=== PATIENT | female | born 1935 | race Caucasian/White ===

== ENCOUNTER 2018-10-01 10:00 | Inpatient (IN) ==
[2018-10-01] MEDS ORDERED: Metoprolol Tartrate 25 MG Tablet PO ONE (10:30)
[2018-10-01] MEDS ORDERED: Sodium Chlor 0.9% Inj 500 ML IV.CONT ONE (10:30)
[2018-10-01] MEDS ORDERED: Chlorhexidine 4% Topical 120 APPLIC/120 ML Bottle TOPICAL SCH (10:30)
[2018-10-01] MEDS ORDERED: Chlorhexidine Gluconate 2% 1 Pack (2 Cloths) TOPICAL ONE (10:30)
[2018-10-01] MEDS ORDERED: Vancomycin Inj 1,000 MG in Sodium Chlor 0.9% Inj 250 ML IV.SIG SCH (11:00)
[2018-10-01] MEDS ORDERED: ceFAZolin 2 GM Premix Inj 2 GM/50 ML PIGGYBACK IV.SIG SCH (11:00)
[2018-10-01] MEDS ORDERED: Sodium Chlor 0.9% Inj 73.07 ML, Ropivacaine 0.5% PF Inj 24.63 ML, Ketorolac Inj 30 MG, ... P-ARTICULR SCH ×5 (11:30)
[2018-10-01] MEDS ORDERED: ceFAZolin 1 GM Premix Inj 1 GM/50 ML PIGGYBACK IV.SIG ONE (13:30)
[2018-10-01] MEDS ORDERED: Post-op Orders (for Pharmacy) OTHER STA (15:19)
[2018-10-01] MEDS ORDERED: Morphine Sulfate Inj 2 MG/ML Vial IV.PUSH PRN (15:19)
[2018-10-01] MEDS ORDERED: Bisacodyl 10 MG Supp RECTAL PRN (15:19)
[2018-10-01] MEDS ORDERED: Zolpidem Tartrate 5 MG Tablet PO PRN (15:21)
[2018-10-01] MEDS ORDERED: fentaNYL Citrate Inj 100 MCG/2 ML Ampul ONE ×2 (15:24)
[2018-10-01] MEDS ORDERED: *Meperidine Inj 25 MG/ML Vial PERIprocedural Use ONLY ONE (15:34)
--- NOTE | 2018-10-01 15:50 | XR ---
EXAM DATE: 10/01/2018 3:46 PM EST AGE/SEX: 83 years / Female INDICATIONS: Post op right knee surgery. CLINICAL DATA: This is the patient's initial encounter. Patient reports that signs and symptoms have been present for 1 day and indicates a pain score of 5/10. MEDICAL/SURGICAL HISTORY: None. None. COMPARISON: PCI, MR KNEE W/O CONTRAST, RIGHT, 09/07/2018. . FINDINGS: Right knee arthroplasty in place. A thoracic components are in anatomic alignment and well positioned . No significant bony fracture. Immediate postsurgical soft tissue changes are noted in the anterior knee soft tissues. CONCLUSION: 1. Status post right knee arthroplasty in anatomic alignment without significant fracture. Electronically signed by: Julian Campoverde MD Board Certified Radiologist 10/01/2018 3:48 PM RACHEL T
[2018-10-01] MEDS ORDERED: *morphine SULFATE 4 MG/ML PERIprocedure ONLY ONE (17:18)
--- NOTE | 2018-10-01 17:53 | MP ---
cc: Maynor Smith MD, Lydia MD DATE OF OPERATION: 10/01/2018 PREOPERATIVE DIAGNOSES: Right knee severe patellofemoral osteoarthritis; lateral patellar subluxation. POSTOPERATIVE DIAGNOSIS: Right knee severe patellofemoral osteoarthritis; lateral patellar subluxation. PROCEDURE PERFORMED: Right total knee arthroplasty - cemented [employer]. SURGEON: Maynor Smith MD DOCK SUPERVISOR: Ramonita Guzmán PA-C. TOURNIQUET TIME: 58 minutes at 275 mmHg. SPECIMEN: None. COMPLICATIONS: None. ANESTHESIA: General, adductor canal saphenous nerve block, intraarticular block. PROCEDURE: My assistant warehouse manager, Ramonita Guzmán PA-C, was present for the entire surgical case. She was medically necessary for the entire case because of the complexity of case and to facilitate the performance of the procedure. The WOOL HAT FORMING MACHINE TENDER at the back table was not of skill set for this case to manipulate instruments due to the multiple different soft tissue retractors, trial implants, permanent implants, including bone cement. PROCEDURE DETAILS: The patient was brought in the operating room and had satisfactory anesthesia by the Department of Anesthesia. The patient's right lower extremity was prepped and draped in the usual sterile fashion. The extremity was exsanguinated by elevation and tourniquet inflated to 275 mmHg. Small anterior skin incision. Anteromedial exposure of the knee was made. The patient was found to have evidence of a previous hematoma. The patient was found to have severe osteoarthritis involving the patellofemoral compartment with severe erosion involving the undersurface of the patella, the supracondylar notch area, and also the lateral femoral condyle. The patient was also found to have arthritis involving the medial and lateral compartments. The remaining portion of the medial and lateral meniscus were removed. The anterior cruciate ligament was removed. The prepatellar fat pad was excised. Posterior cruciate ligament was preserved. Using the [employer] total knee arthroplasty system, IM guide was used at the distal femur to accept a 5-degree valgus cut, to accept a 65 mm femoral component. The extramedullary guide was used for the proximal tibia to accept a 75 mm tibial component. The undersurface of the patella was removed to accept a 28 mm patellar prosthesis. A trial reduction was made. The patient was found to have excellent balance, both flexion and extension, with a 12 mm insert. All trial components were removed and preparation for cementing was made. First, the knee was anesthetized using 100 mL of local anesthesia provided by the pharmacy department. The knee was then irrigated with copious amounts of sterile saline solution. Two packages of high viscosity bone cement by [employer] was used. First, the tibial component was cemented, which was a 75 mm tibial component, followed by a femoral component, which was a 65 mm femoral component. The undersurface of the patella was cemented, which was a 28 mm patellar component. All excess bone cement was removed. Bone cement was allowed to harden for 11 minutes. The polyethylene trial plastic was removed. A 12 x 75 "lipped" prosthesis was assembled onto the tibial tray and the appropriate clipping mechanism was used to secure the polyethylene plastic onto the tibial tray. The patient was found to have excellent balance, flexion and extension, and excellent stability. The tourniquet was deflated. A lateral retinacular release was performed with this. Patella was found to groove well within the patellofemoral compartment with the "no thumbs technique." All bleeders were then coagulated. The wound itself was dry. It was irrigated with 4000 mL of sterile saline and antibiotic solution. The wound was closed over with two 1/8-inch Hemovac drains. The capsule and extensor mechanism were repaired using both interrupted #2 Ti-Cron suture, subcuticular layers with 0 Vicryl and 2-0 Vicryl. Skin was approximated with skin aruna. Sterile dressings were applied. The patient tolerated the procedure well and arrived in the recovery room in stable and satisfactory condition. MD LI Mcclain/jacob , 03:17 PM , 03:29 PM STEPHANY
[2018-10-01] MEDS ORDERED: CETIRIZINE 10 MG PO SCH (21:00)
[2018-10-01] MEDS ORDERED: MAGNESIUM 250 MG PO SCH (21:00)
[2018-10-01] MEDS: ceFAZolin 1 GM Premix Inj 1 GM/50 ML PIGGYBACK IV.SIG SCH (22:38)
[2018-10-01] MEDS: Senna/Docusate Sodium 8.6/50 MG Tablet PO SCH (22:39)
[2018-10-02] MEDS: ceFAZolin 1 GM Premix Inj 1 GM/50 ML PIGGYBACK IV.SIG SCH ×2 (03:21→09:30)
[2018-10-02 05:39] LABS: Hematocrit 26.4 % (35.0-46.0); Hemoglobin 9.1 gm/dL (11.6-15.3)
[2018-10-02] MEDS ORDERED: Levothyroxine 125 MCG Tablet PO SCH (06:00)
--- NOTE | 2018-10-02 07:12 | P.PNOP ---
Subjective Interval history: POD#1 R TKR No pain No chest pain;no SOB Patient wishes to go to SNF today Physical Exam Vital signs: Vital Signs 10/01/18 10:56 10/01/18 15:17 10/01/18 15:30 Temperature 98.2 F 97.8 F Pulse Rate 69 80 69 Respiratory Rate 16 16 15 Blood Pressure 170/77 H 137/63 153/72 H Pulse Oximetry 100 100 100 10/01/18 15:45 10/01/18 16:00 10/01/18 16:30 Temperature Pulse Rate 67 73 79 Respiratory Rate 12 14 18 Blood Pressure 132/63 120/59 L 127/61 Pulse Oximetry 98 98 100 10/01/18 17:00 10/01/18 17:36 10/01/18 18:24 Temperature 98 F 98 F 97.4 F L Pulse Rate 71 68 64 Respiratory Rate 16 17 18 Blood Pressure 125/61 116/55 L 107/57 L Pulse Oximetry 100 99 94 L 10/01/18 20:00 10/02/18 00:00 10/02/18 04:00 Temperature 97.5 F L 97.2 F L 97.7 F Pulse Rate 72 65 70 Respiratory Rate 18 18 18 Blood Pressure 103/54 L 102/51 L 104/55 L Pulse Oximetry 99 96 96 Intake & Output 10/01/18 10/02/18 10/02/18 18:59 06:59 18:59 Intake Total 1540 / 1540 300 / 300 Output Total 150 / 150 1050 / 1050 Balance 1390 / 1390 -750 / -750 Weight 77.1 kg 81.4 kg Intake: IV 1300 / 1300 100 / 100 LR 1000 mL Inj 1,000 ML @ 30 1000 / 1000 mls/hr IV.CONT .Q24H ONE Rx#: [id number] Vancomycin Inj 1,000 MG In NS 250 / 250 Inj 250 ML @ 250 mls/hr IV.SIG STEEL ERECTING PUSHER [facility] Rx#:[id number] Ancef 1 GM Premix Inj 1 gm In 100 / 100 50 ml @ 100 mls/hr IV.SIG Q6H [facility] Rx#:[id number] Ancef 2 GM Premix Inj 2 gm In 50 / 50 50 ml @ 100 mls/hr IV.SIG [employer]EL E[employer]ING PUSHER [facility] Rx#:[id number] Oral 240 / 240 200 / 200 Output: Urine 600 / 600 Estimated Blood Loss 50 / 50 Wound Drainage 100 / 100 450 / 450 # 1 Right Knee Hemovac 100 / 100 450 / 450 Other: # Voids 1 Date of Last Bowel Movement 09/30/18 09/30/18 # Bowel Movements 0 Weight On Admission 77.1 kg Narrative: N/V intact No calf tenderness;negative mohini's Results - Labs CBC & Chem 7: 10/02/18 04:54 Laboratory Results - last 24 hr 10/01/18 10/02/18 10:55 04:54 Hgb 9.1 L Hct 26.4 L Blood Type A Negative Blood Type Recheck Required Antibody Screen Negative - Imaging Impressions Knee X-Ray 10/01/18 15:15 CONCLUSION: 1. Status post right knee arthroplasty in anatomic alignment without significant fracture. Assessment and Plan - Assessment and Plan Ortho stable Discharge to SNF today Aspirin 81mg BID,TEDS x 4 weeks for DVT/PE prophylaxsis
[2018-10-02] MEDS ORDERED: amLODIPine 5 MG Tablet PO SCH (09:00)
[2018-10-02] MEDS: Senna/Docusate Sodium 8.6/50 MG Tablet PO SCH (09:07)
[2018-10-02 16:46] VITALS: BP 106/66; PULSE 80; RESP 20; TEMP 98.7; O2SAT 96
== END 2018-10-02 17:00 ==
LOC: HSDI 10:00 → N06 17:48 → UNDODISIN 10-02 17:00
PROVIDERS: ADMIT Orthopaedic Surgery Orthopaedic Surgery of the Spine; ATTEND Orthopaedic Surgery Orthopaedic Surgery of the Spine